=== PATIENT | male | born 1980 | race Caucasian/White ===

== ENCOUNTER 2017-05-23 10:08 | Day surgery (SDC) | payer BC ==
[~2017-05-23 10:08] MED LIST: Buffered Lidocaine 0.9% SYRIN* 5 ML/SYR SYRINGE INTRADERM ONE; Buffered Lidocaine 0.9% SYRIN* 5 ML/SYR SYRINGE ONE; Dexamethasone IV* 4 MG/ML 1 ML (4 MG) IV SLOW PU ONE; Dexamethasone IV* 4 MG/ML 1 ML (4 MG) ONE; Famotidine IV* 10 MG/ML 2 ML (20 mg) IV ONE; Famotidine IV* 10 MG/ML 2 ML (20 mg) ONE
[2017-05-23] MEDS ORDERED: Oxymetazoline 0.05% NASAL SPR* 15 ML BTL ONE (12:04)
[2017-05-23] MEDS ORDERED: EPINEPHrine AMP 1 MG/ML ONE (12:04)
[2017-05-23] MEDS ORDERED: Lidocaine 4% TOPICAL* 50 ML TOP.SOLN ONE (12:04)
[2017-05-23] MEDS ORDERED: HYDROcodone/ACETAMIN 5-325 MG* 1 TAB PO PRN (12:10)
[2017-05-23] MEDS ORDERED: fentaNYL* 50 MCG/ML 2 ML VIAL (100 MCG VIAL) IV PRN (12:10)
[2017-05-23] MEDS ORDERED: Ketorolac INJ* 30 MG/ML 1 ML VIAL IV PRN (12:10)
[2017-05-23] MEDS ORDERED: PROCHLORPERAZINE INJ 5 MG/ML 2 ML VIAL IV PRN (12:10)
[2017-05-23] MEDS ORDERED: oxyCODONE/Acetamin 5/325 MG* TAB PO PRN (12:10)
[2017-05-23] MEDS ORDERED: Mivacurium Chloride* 20 MG/10 ML VIAL IV ONE (12:13)
[2017-05-23] MEDS ORDERED: Midazolam* 1 MG/ML 5 ML VIAL (5 MG) ONE (12:13)
[2017-05-23] MEDS ORDERED: fentaNYL* 50 MCG/ML 2 ML VIAL (100 MCG VIAL) ONE (12:13)
[2017-05-23] MEDS ORDERED: Propofol* 10 MG/ML 20 ML BTL IV PUSH ONE (12:18)
[2017-05-23] MEDS ORDERED: Lidocaine 2% PF * 5 ML VIAL ONE (12:18)
[2017-05-23] MEDS ORDERED: Metoprolol Tartrate IV* 1 MG/ML 5 ML VIAL ONE (12:44)
[2017-05-23] MEDS ORDERED: Ondansetron INJ* 2 MG/ML VIAL ONE (12:51)
[2017-05-23 14:12] VITALS: BP 144/91
--- NOTE | 2017-05-24 00:53 | OP ---
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 POST-OP DIAGNOSIS: OPERATIVE PROCEDURE: Microlaryngoscopy with biopsy of hypopharyngeal masses and excision of right hypopharyngeal mass under general endotracheal anesthesia. COMPLICATIONS: None. SPECIMEN: Biopsy of left hypopharyngeal nodule and right hypopharyngeal nodules. DISPOSITION: Good. DESCRIPTION OF PROCEDURE: The patient was taken to the operating room, placed in a supine position on the operating room table, general anesthesia was induced and he was orotracheally laser safe tube, because I first thought we were dealing with little hypopharyngeal papillomas and my plan was to biopsy and then ablate them, but he was taken to the operating room and placed on a supine position in the operating room table, general anesthesia induced and I inserted the laryngoscope and found that there was nothing that really looked like it was papillomatous. On the medial wall of the hypopharynx in the piriform sinus, he had a firm little nodule and I took some cup biopsy forceps and biopsied that and then on the lateral wall of the right hypopharynx as what I had seen in the office and thought might be papilloma, but these were 2 adjacent firm little nodules, unsure what they were. I took some biopsies and then grasped them and used the curved microlaryngoscopy scissors to excise them. They were submucosal in nature. The area had been anesthetized with cottonoids impregnated with oxymetazoline and 4% lidocaine. These were placed again and then removed. There was no active bleeding and no residual of the little masses that I removed. Laryngoscope was released and removed. I did use a tooth guard during the procedure. Because I was not concerned about _ papilloma, I did not use the CO2 laser as planned. The patient tolerated this well, no complications, and transferred to the recovery room in stable condition. [id number]/[id number] #: [id number]
== END 2017-05-23 14:15 | disposition home or self-care (01) ==
LOC: OR 10:08
PROVIDERS: ATTEND Otolaryngology
DX: J39.2 Other diseases of pharynx (principal); Z88.0 Allergy status to penicillin; J45.909 Unspecified asthma, uncomplicated
CPT/HCPCS: 88305; A9270-GY; J0171; J1100; J2250; J2405; J2704; J3010